=== PATIENT | female | born 1965 | race Caucasian/White ===

== ENCOUNTER 2016-04-08 21:10 | Emergency (ER) | payer OTHER ==
[~2016-04-08] VITALS: Ht 152.4 cm; Wt 69.5 kg
[~2016-04-08 21:10] MED LIST: ALBU18HF INHALATION; AZIT250T94 PO
[2016-04-08 21:15] VITALS: Ht 152.4 cm; Wt 69.5 kg
[2016-04-08 23:17] LABS: URINE BLOOD (Dip) POC 1+ (NEGATIVE)
[2016-04-08] MEDS ORDERED: PHEN-538 PO (23:36)
[2016-04-08] MEDS ORDERED: CIPR500T4 PO (23:36)
[2016-04-09] MEDS ORDERED: CEFTRIAXONE 1 GM INJ IM ONE
[2016-04-09 00:12] VITALS: BP 133/72; PULSE 83; RESP 17; TEMP 97.9
--- NOTE | 2016-04-09 02:55 | ERD ---
ER Documentation Chief Complaint Date/Time DATE: 04/09/16 TIME: 02:51 Chief Complaint painful,burning sensation upon urination x 3 days HPI 50-year-old female complaining of dysuria 3 days. Patient also reports fever and chills. T-max at home was 101. She took Tylenol 6 hours ago. She also has slight left flank pain. Denies nausea or vomiting. Denies abdominal pain. ROS All systems reviewed and are negative except as per history of present illness. Medications Home Meds Active Scripts Phenazopyridine Hcl* (Pyridium*) 200 Mg Tab, 200 MG PO TID Y for URINARY PAIN, # 6 TAB Prov:YAYA PRIEST. [employer] 04/08/16 Ciprofloxacin Hcl* (Ciprofloxacin Hcl*) 500 Mg Tablet, 500 MG PO BID for 10 Days , TAB Prov:YAYA PRIEST. [employer] 04/08/16 Albuterol Sulfate* (Ventolin HFA*) 18 Gm Hfa.aer.ad, 2 PUFF INHALATION Q4H, #1 INHALER Prov:MARINA TOM MD 01/08/16 Azithromycin* (Zithromax*) 250 Mg Tablet, 250 MG PO .ZPACK DIRECTED, #6 TAB TAKE 500 MG (2 TABS) THE FIRST DAY THEN 250 MG (1 TAB) DAYS 2-5 Prov:MARINA TOM MD 01/08/16 Allergies Allergies: Coded Allergies: No Known Allergy (Unverified , 01/08/16) PMhx/Soc History of hypertension and breast cancer. Hx Alcohol Use: No Hx Substance Use: No Hx Tobacco Use: No Physical Exam Vitals Vital Signs Date Time Temp Pulse Resp B/P Pulse Ox O2 Delivery O2 Flow Rate FiO2 04/09/16 00:12 97.9 83 17 133/72 100 Room Air 04/08/16 21:15 99.1 64 18 117/66 100 Physical Exam General impression: Well-developed, well-nourished. Alert, oriented, in no acute distress Head: Normocephalic, atraumatic. Respiration: Normal respiratory effort. Lungs clear to auscultate bilaterally. No wheezes, rales or rhonchi. Cardiovascular: Regular rate and rhythm. No murmurs or extra heart sounds. Abdomen: Abdomen normal to inspection. Nontender. No masses or organomegaly. Bowel sounds normal. Back: Normal to inspection. No midline spine tenderness. Positive left CVA tenderness, no right CVA tenderness. Neuro: Mental status normal, speech normal. Skin: Normal turgor. No rash or lesions. Psych: Normal mood and affect. Results 24 hrs Laboratory Tests Test 04/08/16 23:18 Bedside Urine Blood 1+ Bedside Urine Glucose (UA) Negative Bedside Urine Ketones (LAB) Negative Bedside Urine Leukocyte Esterase (L Trace Bedside Urine Nitrite (LAB) Negative Bedside Urine Protein (LAB) Negative Bedside Urine pH (LAB) 5.0 Current Medications Medications (Trade) Dose Ordered Sig/Denisse Route PRN Reason Start Time Stop Time Status Last Admin Dose Admin Ceftriaxone Sodium (Rocephin) 1 gm ONCE ONCE IM 04/09/16 00:00 04/09/16 00:01 DC 04/08/16 23:45 Procedures/MDM Well-appearing 50-year-old female presented to ED with dysuria 3 days along with fever. Urine dip shows trace leukocyte, negative nitrite, and 1+ blood. Since patient also has left CVA tenderness, I think likely the patient has a pyelonephritis. Rocephin 1 g IM given to the patient in the ED. Patient given prescription of Cipro 500 mg twice daily 10 days. Patient encouraged increased fluid intake. Patient appears well, stable for discharge and outpatient management. Medical decision making shared with patient and family. Education provided to patient and family. Patient and family expressed understanding of the plan. Medications on discharge: Cipro, Pyridium. Follow-up: Primary care provider in 2-3 days or return to ED if worse. Departure Diagnosis: Primary Impression: Pyelonephritis Condition: Stable Patient Instructions: Pyelonephritis, Female (Adult) Referrals: DOCTOR,NOT ON STAFF [facility] YOU HAVE RECEIVED A MEDICAL SCREENING EXAM AND THE RESULTS INDICATE THAT YOU DO NOT HAVE A CONDITION THAT REQUIRES URGENT TREATMENT IN THE EMERGENCY DEPARTMENT. FURTHER EVALUATION AND TREATMENT OF YOUR CONDITION CAN WAIT UNTIL YOU ARE SEEN IN YOUR DOCTORS OFFICE WITHIN THE NEXT 1-2 DAYS. IT IS YOUR RESPONSIBILITY TO MAKE AN APPOINTMENT FOR FOLOW-UP CARE. IF YOU HAVE A PRIMARY DOCTOR --you should call your primary doctor and schedule an appointment IF YOU DO NOT HAVE A PRIMARY DOCTOR YOU CAN CALL OUR PHYSICIAN REFERRAL HOTLINE AT IF YOU CAN NOT AFFORD TO SEE A PHYSICIAN YOU CAN CHOSE FROM THE FOLLOWING [facility] [address] [facility] [address] [facility] [address] [facility] [address] [facility]. [facility] [address] [facility]. [facility] [address] Additional Instructions: Call your primary care doctor TOMORROW for an appointment during the next 2-3 days.See the doctor sooner or return here if your condition worsens before your appointment time. YAYA PRIEST NP Apr 09, 2016 02:55
== END 2016-04-09 01:17 | disposition home or self-care (01) ==
LOC: FTE 21:10
DX: N12 Tubulo-interstitial nephritis, not specified as acute or chronic (principal); I10 Essential (primary) hypertension; Z85.3 Personal history of malignant neoplasm of breast
CPT/HCPCS: 81003; 96372; J0696; Z7502

== ENCOUNTER 2016-07-10 06:23 | Day surgery (SDC) | payer OTHER ==
[~2016-07-10] VITALS: Ht 152.4 cm; Wt 71.2 kg
[~2016-07-10 06:23] MED LIST changes: +CIPR500T4 PO; +PHEN-538 PO
[2016-07-10 07:40] VITALS: Ht 152.4 cm; Wt 71.2 kg
[2016-07-10] MEDS ORDERED: ASPI-535 PO (07:48)
[2016-07-10] MEDS ORDERED: losartan PO (07:48)
[2016-07-10] MEDS ORDERED: megestrol PO (07:48)
[2016-07-10 08:29] VITALS: BP 142/74; PULSE 59; RESP 20
[2016-07-10] MEDS ORDERED: MIDAZOLAM 1 MG/ML 2 ML INJ ONE (08:52)
[2016-07-10] MEDS ORDERED: FENTAnyl 50 MCG/ML VIAL ONE (08:52)
[2016-07-10 09:20] VITALS: BP 136/72; PULSE 50; RESP 18
--- NOTE | 2016-07-11 01:12 | GILP ---
DATE OF PROCEDURE: NAME OF PROCEDURES: Colonoscopy and biopsy. SURGEON: Jamison Childress MD PREOPERATIVE DIAGNOSIS: Screening colonoscopy. POSTOPERATIVE DIAGNOSES: 1. Colonoscopy all the way to the cecum. 2. Two small colon polyps were removed using the biopsy forceps. 3. Internal hemorrhoids. INDICATION FOR THE PROCEDURE: Ms. Aroldo Fontenot is a 50-year-old female patient who was scheduled f or screening colonoscopy. The procedure and possible complications are well explained to the patient. She understood and cons ented to the procedure. DESCRIPTION OF PROCEDURE: Under the influence of gentle Versed, the colonoscope was carefully intro duced in the rectum. Under direct vision, it was advanced all the way to the cecum. FINDINGS: The patient had 2 small colon polyps, one in the sigmoid colon and another one in the tra nsverse colon, and they were removed using the biopsy forceps. She was noted to have internal hemor rhoids. She tolerated the procedure very well and there was no complication from the procedure. At the end of the procedure, she was awake with stable vital signs and she was discharged home to the care of h er family. IMPRESSION: 1. Colonoscopy all the way to the cecum. 2. Two small colon polyps were removed using the biopsy forceps. 3. Internal hemorrhoids. PLAN: 1. Await histopathology report. 2. Screening colonoscopy in 10 years. Dictated By: JAMISON WOODRUFF/RICK Conf#: [id number] DID#: [id number] CC: JAMISON CHILDRESS MD;*EndCC*
== END 2016-07-10 10:27 | disposition home or self-care (01) ==
LOC: GIL 06:23
PROVIDERS: ATTEND Internal Medicine Gastroenterology
DX: Z12.11 Encounter for screening for malignant neoplasm of colon (principal); D12.5 Benign neoplasm of sigmoid colon; K64.8 Other hemorrhoids; I10 Essential (primary) hypertension
CPT/HCPCS: 45380; 88305; J2250; J3010; Z7610